=== PATIENT | male | born 1990 | race Caucasian/White ===

== ENCOUNTER 2017-05-11 18:55 | Emergency (ER) | payer OTHER ==
[~2017-05-11] VITALS: Ht 182.9 cm; Wt 130.0 kg
[~2017-05-11 18:55] MED LIST: ROBA750T PO; TRAM50TA PO
[2017-05-11 18:57] VITALS: BP 162/82; PULSE 95; RESP 20; TEMP 99; O2SAT 97
[2017-05-11] MEDS ORDERED: ROBA750T PO (20:16)
[2017-05-11] MEDS ORDERED: DICL75TA PO (20:16)
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
== END 2017-05-11 20:31 | disposition home or self-care (01) ==
LOC: NEPK 18:55
DX: M54.9 Dorsalgia, unspecified (principal); V23.9XXA Unspecified motorcycle rider injured in collision with car, pick-up truck or van in traffic accident, initial encounter
CPT/HCPCS: 99284